=== PATIENT | male | born 1970 | race Caucasian/White ===

== ENCOUNTER → 2016-05-20 | Outpatient (CLI) | payer OTHER ==
--- NOTE | 2016-05-20 11:42 | NUR ---
ALCOHOL/DRUG TEST AND EVALUATION 2 HRS: Clt is present as directed by his chief accounting officer, and [employer] Machine Operator Kirby. See written eval for test results and recommendations.
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
== END | disposition home or self-care (01) ==
LOC: ADTC.GI 08:49
DX: F10.20 Alcohol dependence, uncomplicated (principal)